=== PATIENT | female | born 1980 | race Caucasian/White ===

== ENCOUNTER 2025-07-14 15:24 | Emergency (ER) | payer OTHER, SELFPAY ==
--- OUTSIDE RECORDS SUMMARY | 2017-11-21 10:15 | XMS_ITS | Continuity of Care Document ---
Author Organization [facility] Address [address] [place] [address] Phone Care Team Providers Care Commercial Real Estate Attorney Name Role Phone Wale Ace Unavailable Unavailable Advance Directives Directive Yes / No Effective Date File Name No Information Encounters Encounter Description Practice Location Reason(s) For Visit Diagnoses Date Provider Providers Copied on Encounter [facility], [address] [place] [address], [id number], [place] tel:[phone] [facility] Spine Care (chief complaint) Segmental and somatic dysfunction of lumbar regionLow back painSegmental and somatic dysfunction of thoracic region Wale Bello. [address], [place], [id number], [place]. tel:[phone] Family History Family Member Type Diagnosis Age At Onset No Information Payers Payer name Insurance type Covered green party ID Authoriza tion(s) Medical [place] CI [id number] Social History Type Description Quantity Date Captured Comments Sex Female Smoking Status No Information Sexual Orientation Straight or heterosexual Aug Gender Identity Female Chief Complaint And Reason For Visit From encounter dated '11/21/2017 15:15'. Spine Care (chief complaint). Description: C/O chronic low back/hip pain with gradual onset over several years.Sx are the result of regular ADL'S. No specific injury or trauma is noted. Pain is primarily at L3-L5 PVM on the Rt. & Lt. _and extends to the SI joint, Rt. & Lt. Pain is local, dull, and without radiation to the lower extremities. No sensory or motor changes noted. Symptoms present with a pain scale of 3 (VAS = 1-10). Pain interferes with regular ADL's.Increase in pain with movement/ROM and ADL'S. Some decrease in symptoms with rest. No change in the pain pattern from the onset of symptoms. Pain pattern is as prior times. 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 Undergoing PT for right knee. Reason For Referral Reason For Referral No Information History Of Present Illness Encounter Date Complaint History Of Prese nt Illness Spine Care C/O chronic low back/hip pain with gradual onset over several years.Sx are the result of regular ADL'S. No specific injury or trauma is noted. Pain is primarily at L3-L5 PVM on the Rt. & Lt. _and extends to the SI joint, Rt. & Lt. Pain is local, dull, and without radiation to the lower extremities. No sensory or motor changes noted. Symptoms present with a pain scale of 3 (VAS = 1-10). Pain interferes with regular ADL's. Increase in pain with movement/ROM and ADL'S. Some decrease in symptoms with rest. No change in the pain pattern from the onset of symptoms. Pain pattern is as prior times. 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 Undergoing PT for right knee. Functional Status Date Functional Assessmen t No Information Instructions Date Instruction Additional Infor mation No Information Assessments Type Assessment Date assessment Segmental and somatic dysfunctio n of lumbar region assessment Low back pain assessment Segmental and somatic dysfunctio n of thoracic region impression Musculoskeletal rela jamie LBP w/o radiculopathy. No complications anticipated. Patient Care Teams Name Effective Dates (start - stop) Status Members No Information
[2025-07-14 15:42] VITALS: BP 150/98; PULSE 86; TEMP 36.7; O2SAT 98; BMI 39.5
--- OUTSIDE RECORDS SUMMARY | 2025-07-14 17:39 | XMS_ITS | Clinical Summary ---
Author Organization [facility] Address [address] [place] [address] Care Team Providers Care Padder Name Role Phone Titi Thomas MD Primary Care Provider [phone] Allergies Active AllergyReactionsCriticalityNoted QrvqMextpufzYbygdutbexbEut88/02/2006 Other Reaction(s): Hives Amoxicillin-Pot DvtxywylgacEer49/03/2023 Other Reaction(s): Hives HpufmwrcbsjagwfElc11/03/2023 Other Reaction(s): Heart racing. agitated Dextromethorphan OtrVmd1102/21/2023 Other Reaction(s): Heart racing. agitated CphdqpulskpdpgjBvq16/03/2023 Other Reaction(s): Heart racing , agitation DwcdpwvwkrsjxaygysmOec28/03/2023 Other Reaction(s): Heart racing. agitated Zinc LofbcpcQey49/03/2023 Other Reaction(s): Heart racing , agitation Medications MedicationSigDispense QuantityRefillsLast FilledStart DateEnd DateStatus Levonorgestrel (MIRENA, 52 MG, IU) as directed IntrauterineActive Multiple Vitamin (Multi Vitamin Daily) tablet 1 (one) time each day at the same time.Active nystatin-triamcinolone (Mycolog II) ointment Indications:Encounter for gynecological examination without abnormal finding Apply topically 2 (two) times a day. 15 g 3Active levothyroxine (Synthroid, Levoxyl) 100 MCG tablet Indications:Acquired hypothyroidismTake 1 tablet (100 mcg) by mouth Daily 90 tablet 5Active Active Problems ProblemNoted DateDiagnosed DateArthritis of knee02/21/2023ERD (gastroesophageal reflux disease)02/21/20239544Gfsikshsgkxuuc21/03/7084Johwpcou02/03/2023 Resolved Problems ProblemNoted DateDiagnosed DateResolved SxcyFdgqsy59CB (post coital bleeding)/ Encounters DateTypeDepartmentCare WftnMysnuqgirrz92/03/2025Results Follow-Up [facility] [address] [place] [phone] Compa Porter, MR knee left wo IV zvnoicvs95/02/2025 4:00 PM EDTAncillary Procedure [facility] [address] [place] [phone] Effusion of left knee; Acute pain of left knee04/23/2025Travelfrom Last 3 Months Immunizations ImmunizationAdministration DatesNext HnhUmga9605/04/2013,09/21/2012 Family History Medical HistoryRelationNameCommentsHypertensionFatherColon cancerMaternal GrandfatherDiabetesMaternal GrandfatherCancerMaternal GrandmotherDiabetes Maternal GrandmotherHeart diseaseMaternal GrandmotherHypertensionMotherThyroid diseaseMotherThroat cancerPaternal GrandfathersarcomaPaternal Grandmother RelationNameStatusCommentsFatherAliveMaternal GrandfatherMaternal Grandmother MotherAlivePaternal GrandfatherPaternal Grandmother Social History Tobacco UseTypesPacks/DayYears UsedDateSmoking Tobacco: NeverSmokeless Tobacco: Never Tobacco Cessation:Counseling Given: No Alcohol UseStandard Drinks/WeekCommentsNever0 (1 standard drink = 0.6 oz pure alcohol)Caffeine intake: 2 cups per day coffeeAUDIT-CAnswerDate RecordedQ1: How often do you have a drink containing alcohol?Never03/07/2024Q2: How many drinks containing alcohol do you have on a typical day when you are drinking?Patient does not drink03/07/2024Q3: How often do you have six or more drinks on one occasion?Never03/07/2024HQ-2AnswerDate RecordedPatient Health Questionnaire-2 Zinox531CommentsNoSex and Gender InformationValueDate Recorded Sex Assigned at BirthNot on fileLegal RyyTbirtb47/15/2023 6:56 PM EDTGender IdentityNot on fileSexual OrientationNot on fileOccupationIndustryJob Start Date Job End DateEnrollment Specialist [employer]- synchronizer of a [employer] shopNot on fileNot on fileNot on file Last Filed Vital Signs Vital SignReadingTime TakenCommentsBlood Txprwbsc878/7607 1:15 PM EDT Qmqxu558403/20/2025 1:15 PM PDCSwvgrhkagas20.8 ??C (98.3 ??F)03/20/2025 1:15 PM EDTRespiratory Rate--Oxygen Tegldddihm26%03/20/2025 1:15 PM EDTInhaled Oxygen Concentration--Prxjbq718 kg (283 lb)03/20/2025 1:15 PM OADQckqoh178.7 cm (5' 8 ) 03/20/2025 1:15 PM EDTBody Mass Index43.03003/20/2025 1:15 PM EDT Plan of Treatment Health MaintenanceDue DateLast DoneCommentsCT Atcehpygwbmn16/05/1979Colonoscopy 1978Colorectal Cancer Empdprpjp83/05/1979FIT-DNA1978FIT1978 FOBT1978 4654Sbgcdboxyaxny28/05/1979COVID-19 Vaccine ( season) 2025Influenza Vaccine (#1)04/22/20252334Cuxqkpsah87/07/202605/02/2025, 12/08/2023, 09/28/2022, Additional history existsPap Smear/, 02/21/2023ervical Cancer Vvxmdhfug89/03/2028HPV/Preqia79/10/2022, 03/18/2021, 03/11/2020Pneumococcal Vaccine: Pediatrics (0 to 5 Years) and At- Risk Patients (6 to 64 Years)Aged OutNo longer eligible based on patient's age to complete this topic Procedures Procedure NamePriorityDate/TimeAssociated DiagnosisCommentsMR KNEE LEFT WO IV SITFHNYNIogppgh08/02/2025 4:59 PM EDT Effusion of left knee Acute pain of left knee BI MAMMOGRAM SCREENING TOMOSYNTHESIS DUDSSLYJRQciegyi26/07/2025 6:11 PM EDT Breast cancer screening by mammogram Encounter for screening mammogram for malignant neoplasm of breast THINPREP TIS PAP AND HPV MRNA E6/E7 WITH REFLEX TO HPV 16,18/55Cdvetwd39/17/2024 4:04 PM EDT Screening for malignant neoplasm of cervix THINPREP TIS PAP AND HPV MRNA E6/E7 WITH REFLEX TO HPV 16,18/78Inghlsl18/03/2023 2:51 PM EDT from Last 3 Months or Most Recently Relevant to Health Maintenance Results * MR knee left wo IV contrast (04/23/2025 4:59 PM EDT)Anatomical Region LateralityModalityLower Extremities, KneeLeftMagnetic ResonanceSpecimen (Source)Anatomical Location / LateralityCollection Method / VolumeCollection TimeReceived Time04/24/2025 11:24 AM EDT Impressions 04/24/2025 11:27 AM EDT Complex tear of the medial meniscus. 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 ELECTRONICALLY SIGNED BY: DO Amanda Kruger 04/24/2025 11:27 AM EDT Exam: MR KNEE LEFT WO IV CONTRAST History: Knee pain Technique: Multiplanar multisequence MRI of the knee was performed without contrast. Comparison: Radiographs April 08, 2025 Findings: Quadriceps and patellar tendons are intact. Large joint effusion. Anterior and posterior cruciate ligaments are intact. The medial collateral ligament, lateral collateral ligament, and popliteus are intact. Complex tear of the body through posterior horn of the medial meniscus. The lateral meniscus is intact. Full-thickness cartilage loss of the majority of the outer weightbearing medial femoral condyle andmedial tibial plateau subjacent to the body of the medial meniscus. Mild subcortical bone marrow edema of the medial femoral condyle and medial tibial plateau. Low-grade partial-thickness cartilage loss of the mid and inferior median patellar ridge and lateral patellar facet. Popliteal fossa structures are intact. ??No Hutson cyst. Procedure Note Titi Parks, - 04/24/2025 Exam: MR KNEE LEFT WO IV CONTRAST History: Knee pain Technique: Multiplanar multisequence MRI of the knee was performed without contrast. Comparison: Radiographs April 08, 2025 Findings: Quadriceps and patellar tendons are intact. Large joint effusion. Anterior and posterior cruciate ligaments are intact. The medial collateral ligament, lateral collateral ligament, and popliteusare intact. Complex tear of the body through posterior horn of the medial meniscus.The lateral meniscus is intact. Full-thickness cartilage loss of the majority of the outer weightbearingmedial femoral condyle and medial tibial plateau subjacent to the body ofthe medial meniscus. Mild subcortical bone marrow edema of the medialfemoral condyle and medial tibial plateau. Low-grade partial-thicknesscartilage loss of the mid and inferior median patellar ridge and lateralpatellar facet. Popliteal fossa structures are intact. No Hutson cyst. IMPRESSION: Complex tear of the medial meniscus. 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 ELECTRONICALLY SIGNED BY: Titi Parks DO Authorizing ProviderResult TypeResult StatusMatthew C German [facility] MRI PROCEDURESFinal Result * Bilateral screening mammogram with tomosynthesis (12/26/2024 6:11 PM EDT) Anatomical RegionLateralityModalityBreastBilateralMammographySpecimen (Source) Anatomical Location / LateralityCollection Method / VolumeCollection Time Received Time12/27/2024 11:26 AM EDT Impressions 12/27/2024 11:32 AM EDT Impression: No specific evidence of malignancy seen in either breast. BIRADS 2 - Benign Findings DENSITY: There are scattered areas of fibroglandular density. FOLLOW-UP: Routine Screening Mammogram ELECTRONICALLY SIGNED BY: Nito Roth M.D. Narrative 12/27/2024 11:32 AM EDT Examination: BI MAMMOGRAM SCREENING TOMOSYNTHESIS BILATERAL Clinical History: screening Technique: Screening digital mammography study of both breasts was performed with 2-D and 3-D tomosynthesis imaging. Study was compared to the prior exam dated 12/08/2023. Findings: There is no evidence of interval dominant spiculated mass, grouped microcalcifications, or skin thickening which would be suggestive of malignancy. ?? A few benign-appearing calcifications are seen bilaterally. Axillary lymph nodes including partially visualized lymph nodes noted bilaterally which appear grossly unremarkable. Procedure Note Nito Roth MD - 12/27/2024 Examination: BI MAMMOGRAM SCREENING TOMOSYNTHESIS BILATERAL Clinical History: screening Technique: Screening digital mammography study of both breasts wasperformed with 2-D and 3-D tomosynthesis imaging. Study was compared tothe prior exam dated 12/08/2023. Findings: There is no evidence of interval dominant spiculated mass,grouped microcalcifications, or skin thickening which would be suggestiveof malignancy. A few benign-appearing calcifications are seen bilaterally. Axillary lymphnodes including partially visualized lymph nodes noted bilaterally whichappear grossly unremarkable. IMPRESSION: Impression: No specific evidence of malignancy seen in either breast. BIRADS 2 - Benign Findings DENSITY: There are scattered areas of fibroglandular density. FOLLOW-UP: Routine Screening Mammogram ELECTRONICALLY SIGNED BY: Nito Roth M.D. Authorizing ProviderResult TypeResult StatusWillbarbaram Leanna Chu [facility] BI PROCEDURES Final Result * THINPREP TIS PAP AND HPV MRNA E6/E7 WITH REFLEX TO HPV 16,18/45 (03/07/2024 4:04 PM EDT)ComponentValueRef RangeTest MethodAnalysis TimePerformed At Pathologist SignatureCLINICAL INFORMATIONQUESTComment: Other high risk factor, specify APOHRNG LMPQUESTComment:NONE GIVENPREV. PAPQUESTComment:NONE GIVENPREV. BXQUESTComment: NONE GIVENSOURCEQUESTComment:CervixSTATEMENT OF ADEQUACYQUESTComment: Satisfactory for evaluation. Endocervical/transformation zone component absent. INTERPRETATION/RESULTQUESTComment: Cytology Results: Negative for intraepithelial lesion or malignancy. COMMENTQUESTComment: This Pap test has been evaluated with computer assisted technology. CYTOTECHNOLOGISTQUESTComment: L[facility], CT(ASCP) CT screening location: [place] [address]. REVIEW CYTOTECHNOLOGISTQUESTComment: [facility], CT(ASCP) CT screening location: [place] [address]. (ALWAYS MESSAGE)QUESTComment: EXPLANATORY NOTE: The Pap is a screening test for cervical cancer. It is not a diagnostic test and is subject to false negative and false positive results. It is most reliable when a satisfactory sample, regularly obtained, is submitted with relevant clinical findings and history, and when the Pap result is evaluated along with historic and current clinical information. HPV MRNA E6/E7Not DetectedNot DetectedQUESTComment: Methodology: Operation Research Analyst-Mediated Amplification This assay detects E6/E7 viral messenger RNA (mRNA) from 14 high-risk HPV types (16,18,31,33,35,39,45,51,52,56,58,59,66,68). Cervical sources are required for HPV testing. If a vaginal source from a patient who has had a total hysterectomy with removal of cervix was submitted, please contact the testing laboratory for alternative testing options. For additional information, please refer to http://education.IMASTE/faq/CFX834t0 (This link if provided for information/ educational purposes only.) Specimen (Source)Anatomical Location / LateralityCollection Method / Volume Collection TimeReceived TimeSwab (Endocervix)03/07/2024 4:04 PM EDT03/08/2024 4:11 AM EDT Narrative Resulting Agency Comment Performing Organization Information ?Site ID: [id number] ?Name: [facility] ?Address: [address] [place] [id number] ?Director: Nader Sandoval MD Authorizing ProviderResult TypeResult StatusWibhargav Chu [facility] CYTOLOGY ORDERABLESFinal ResultPerforming OrganizationAddressCity/State/ZIP CodePhone Number [facility] * THINPREP TIS PAP AND HPV MRNA E6/E7 WITH REFLEX TO HPV 16,18/45 (02/21/2023 2:51 PM EDT)ComponentValueRef RangeTest MethodAnalysis TimePerformed At Pathologist SignatureCLINICAL INFORMATIONQUESTComment:None givenLMPQUEST Comment:NONE GIVENPREV. PAPQUESTComment:NONE GIVENPREV. BXQUESTComment:NONE GIVENSOURCEQUESTComment:None givenSTATEMENT OF ADEQUACYQUESTComment: Satisfactory for evaluation. Endocervical/transformation zone component absent. INTERPRETATION/RESULTQUESTComment: Cytology Results: Negative for intraepithelial lesion or malignancy. COMMENTQUESTComment: This Pap test has been evaluated with computer assisted technology. CYTOTECHNOLOGISTQUESTComment: TACOS WRIGHT(ASCP) CT Screening Location: ??[facility], [address] [place] [id number] (ALWAYS MESSAGE)QUESTComment: EXPLANATORY NOTE: The Pap is a screening test for cervical cancer. It is not a diagnostic test and is subject to false negative and false positive results. It is most reliable when a satisfactory sample, regularly obtained, is submitted with relevant clinical findings and history, and when the Pap result is evaluated along with historic and current clinical information. HPV MRNA E6/E7Not DetectedNot DetectedQUESTComment: Methodology: Operation Research Analyst-Mediated Amplification This assay detects E6/E7 viral messenger RNA (mRNA) from 14 high-risk HPV types (16,18,31,33,35,39,45,51,52,56,58,59,66,68). Cervical sources are required for HPV testing. If a vaginal source from a patient who has had a total hysterectomy with removal of cervix was submitted, please contact the testing laboratory for alternative testing options. For additional information, please refer to http://education.IMASTE/faq/IIM379w9 (This link if provided for information/ educational purposes only.) Specimen (Source)Anatomical Location / LateralityCollection Method / Volume Collection TimeReceived Time02/21/2023 2:51 PM EDT02/22/2023 1:12 AM EDT Narrative Resulting Agency Comment Performing Organization Information ?Site ID: [id number] ?Name: [facility] ?Address: [address] [place] [id number] ?Director: Nader Sandoval MD Authorizing ProviderResult TypeResult StatusWibhargav HOOD CYTOLOGY ORDERABLESFinal ResultPerforming OrganizationAddressCity/State/ZIP CodePhone Number [facility] from Last 3 Months or Most Recently Relevant to Health Maintenance Insurance Care Teams Team MemberRelationshipSpecialtyStart DateEnd Date Titi Thomas MD [address] [place] [address] PCP - GeneralInternal Medicine02/21/23
--- OUTSIDE RECORDS SUMMARY | 2025-07-14 17:39 | XMS_ITS | Clinical Summary ---
Author Organization [facility] Address [address] [place] [address] Care Team Providers Care Timber Repairer Name Role Phone Sean Gracia MD Primary Care Provider [phone] Allergies Active AllergyReactionsCriticalityNoted SuedXqdkinhnZemsnlpdvro00/02/2006 Medications MedicationSigDispense QuantityRefillsLast FilledStart DateEnd DateStatus multivitamin ( 1+1) 65-1 mg ORAL Tab Take one(1) tablet daily.ctive Docosahexanoic Acid (EXPECTA LIPIL) 200 mg ORAL Cap Take one(1) tablet daily. q1 ctive Family History Medical HistoryRelationCommentsDiabetesMaternal GrandfatherDM-2DiabetesMaternal GrandmotherDM-2ThyroidMotherHypothyroidismRelationStatusCommentsMaternal GrandfatherMaternal GrandmotherMother Social History Tobacco UseTypesPacks/DayYears UsedDateSmoking Tobacco: NeverAlcohol UseStandard Drinks/WeekCommentsYes0 (1 standard drink = 0.6 oz pure alcohol)None in four years.CommentsNoSex and Gender InformationValueDate RecordedSex Assigned at BirthNot on fileLegal CllLdqlmu16/02/2012 8:02 AM ESTGender IdentityNot on fileSexual OrientationNot on fileOccupationIndustryJob Start DateJob End Date Police dispatcherNot on fileNot on fileNot on file Last Filed Vital Signs Vital SignReadingTime TakenCommentsBlood Xkuxoxfi654/6405 11:25 AM EDT Ogjej508701/07/2007 11:25 AM EDTTemperature--Respiratory Rate--Oxygen Saturation-- Inhaled Oxygen Concentration--Uwsugu17.3 kg (219 lb)01/07/2007 11:25 AM EDT Aoezar035.2 cm (5' 7 )01/07/2007 11:25 AM EDTBody Mass Index34. 11:25 AM EDT Plan of Treatment Health MaintenanceDue DateLast DoneCommentsAnxiety Mdbfbdfns12/05/1997Depression Tltscrgwa24/05/1997HIV Xxrsvfyjl21/05/1997Hepatitis C Llzclkmyc78/05/1997 DTaP,Tdap,Td Vaccine (1 - Tdap)1997Hepatitis B Vaccine (1 of 3 - 19+ 3- dose series)1997Cervical Cancer Qrfnbcwnw06/05/2000Mammogram Screening 2018CT Yohtkyzlmdjk22/05/2024ologuard (FIT-DNA)4Colonoscopy 11/25/2023olorectal Cancer Necohbfvf98/05/2024iabetes Mvaadubqp25/05/2024Fecal Occult Blood11/25/2023Lipid Trryoxfuv67/05/8832Hxzdkhgnmxjkx62/05/2024ovid-19 Vaccine ( - season)2025Influenza Vaccine (#1)2025 Care Teams Team MemberRelationshipSpecialtyStart DateEnd Date Sean Gracia MD [address] [place] [address] PCP - General12/20/05
[2025-07-14] MEDS: DIPHTH,PERTUSS(ACELL),TET VAC 0.5 ML SYRINGE IM (17:40)
--- NOTE | 2025-07-14 18:24 | ED_ITS ---
HPI HPI - General Adult General Stated complaint: LACERATION Time Seen by Provider: 07/14/25 16:58 Source: patient Mode of arrival: walk-in Limitations: no limitations History of Present Illness Onset (ago): minute(s) Location: Reports left and upper extremity Severity: mild Quality: Reports aching Pain Consistency: Reports constant Relieving factors: Reports rest Exacerbating factors: Reports movement Associated symptoms: Reports denies other symptoms Treatments prior to arrival: Reports other (hold pressure) Related Data Home Medications ?Medication ?Instructions ?Recorded ?Confirmed levothyroxine 100 mcg tablet mcg 07/14/25 Allergies Allergy/AdvReac Type Severity Reaction Status Date / Time amoxicillin Allergy Hives Verified 07/14/25 15:45 Penicillins Allergy Hives Verified 07/14/25 15:45 Opioid HPI Opioid Management Most Recent Opioid Data: Last Pain Scale 1 Today, 15:42 PFSH PFSH Social History Little interest or pleasure in doing things: not at all Feeling down, depressed, or hopeless: not at all Exam Constitutional Vital Signs, click to edit/add: Last Vital Signs Temp 98.1 F 07/14/25 15:42 Pulse 86 07/14/25 15:42 Resp 18 07/14/25 15:42 BP 150/98 H 07/14/25 15:42 Pulse Ox 98 07/14/25 15:42 O2 Del Method Room Air 07/14/25 15:42 Documenting provider has reviewed patient's vital signs: yes Common normals: no apparent distress General appearance: cooperative, comfortable, well kempt and well developed Orientation/consciousness: Yes awake, Yes oriented to person, Yes oriented to place and Yes oriented to time HENMT Common normals: normocephalic Head and scalp: atraumatic Face and sinus: normal facial exam Eye Common normals: PERRL General eye: normal appearance of both eyes Respiratory Common normals: normal respiratory effort Effort & inspection: able to speak in complete sentences Auscultation: clear to auscultation bilaterally Cardio Common normals: regular rate and regular rhythm Extremity General: other findings (0.5 cm linear horizontal laceration left 5th DIP palmar aspect) Neuro Common normals: oriented x3, CN's II-XII intact bilaterally, moves all e xtremities, no focal motor deficits, no sensory deficits noted and gait normal Sensorium/orientation: awake, alert, oriented to person, oriented to place and oriented to time Cranial nerves: CN normal except as noted Speech: speech normal Gait (neuro): normal gait Psych Common normals: mental status grossly normal Course Course Hospital Course: Patient was administered Tdap. Procedure note as per documentation. I discussed the discharge diagnosis, plan of care, home-going instructions with the patient. She will follow-up with her primary care physician. She is to return to the emergency department for any further problems or concerns. The patient and I discussed symptoms to watch for including increased erythema, pain that is worse instead of better. Purulent drainage, increased erythema. Patient was discharged to home in stable condition. She will follow-up with her primary care physician. She will return to the emergency department for further problems or concerns. Vital Signs Vital signs: Vital Signs Temperature 98.1 F 07/14/25 15:42 Pulse Rate 86 07/14/25 15:42 Respiratory Rate 18 07/14/25 15:42 Blood Pressure 150/98 H 07/14/25 15:42 Pulse Oximetry 98 07/14/25 15:42 Oxygen Delivery Method Room Air 07/14/25 15:42 Temperature 98.1 F 07/14/25 15:42 Pulse Rate 86 07/14/25 15:42 Respiratory Rate 18 07/14/25 15:42 Blood Pressure 150/98 H 07/14/25 15:42 Pulse Oximetry 98 07/14/25 15:42 Oxygen Delivery Method Room Air 07/14/25 15:42 Medical Decision Making Differential Diagnosis Differential Diagnosis: skin laceration left 5th finger, need for Tdap immunization Medical Records Medical records reviewed: Yes I reviewed the patient's medical records Discharge Plan Discharge Clinical Impression: Laceration, Tetanus toxoid inoculation Patient Disposition: Home, Self-Care Time of Disposition Decision: 18:30 Condition: Good Mode of Transportation: Private Vehicle Prescriptions / Home Meds: No Action levothyroxine 100 mcg tablet Print Language: Russian Instructions: Diphtheria/Acellular Pertussis/Tetanus Booster Vaccine (Tdap) (By... Additional Instructions: Dermabond Referrals: JONATHAN MEDINA [Primary Care Provider, Internal Medicine] - 1 week Discharge Date/Time: 07/14/25 18:36 Procedures ED Laceration Laceration Laceration 1: Site: other (Left fifth finger, palmar aspect, DIP, horizontal) Side (if applicable): left Size (cm): 0.5 Description: linear and clean (0.5 cm, linear, horizontal) Depth: simple, single layer Amount (ml): 0 Pre-repair: wound explored and irrigated extensively Size (cm): other (Dermabond) Additional comments: The wound was cleansed. I was able to visualize the wound to its depth. There is no evidence of foreign body. The history is not consistent with foreign body. No tendon involvement. Using Dermabond, wound edges were well- approximated. Bleeding was controlled. Dry sterile dressing was applied. Distal neurovascular was intact after procedure. Patient tolerated procedure well.
== END 2025-07-14 18:36 | disposition home or self-care (01) ==
PROVIDERS: Emergency Provider Emergency Medicine; PCP Internal Medicine
DX: S61.217A Laceration without foreign body of left little finger without damage to nail, initial encounter (principal); W25.XXXA Contact with sharp glass, initial encounter; Z23 Encounter for immunization
CPT/HCPCS: 90471; 90715; 99283